=== PATIENT | male | born 2000 | race Caucasian/White ===

== ENCOUNTER 2019-05-09 22:09 | Emergency (ER) | payer OTHER ==
[~2019-05-09] VITALS: Ht 177.8 cm; Wt 93.9 kg
[2019-05-09 22:43] VITALS: BP 112/73
== END 2019-05-10 00:02 | disposition home or self-care (01) ==
LOC: ED 23:59
DX: G89.11 Acute pain due to trauma (principal); M25.531 Pain in right wrist; W22.8XXA Striking against or struck by other objects, initial encounter; Y93.89 Activity, other specified; Y92.69 Other specified industrial and construction area as the place of occurrence of the external cause; Y99.0 Civilian activity done for income or pay
CPT/HCPCS: 99283